=== PATIENT | male | born 1995 | race Hispanic/Latino ===

== ENCOUNTER 2016-09-23 10:15 | Emergency (ER) | payer OTHER ==
[~2016-09-23] VITALS: Ht 190.5 cm; Wt 83.9 kg
[2016-09-23] MEDS ORDERED: METHOCARBAMOL 500 MG TAB PO ONE (11:00)
[2016-09-23] MEDS ORDERED: IBUPROFEN 800 MG TAB PO ONE (11:00)
--- NOTE | 2016-09-23 11:54 | REP ---
LUMBOSACRAL SPINE: Five views of the lumbosacral spine performed. There is no fracture or dislocation. Vertebral bodies are normal in height and are well aligned with normal lumbar lordosis. There is no spondylolysis or spondylolisthesis. Disc spaces are well preserved. Posterior elements are intact. IMPRESSION: No fracture or dislocation. Signed by Sumeet Bonilla MD 09/24/2016 04:02 P
[2016-09-23] MEDS ORDERED: IBUP80TA PO (12:08)
[2016-09-23] MEDS ORDERED: ROBA500T PO (12:08)
[2016-09-23] MEDS ORDERED: NORCOTAB PO (12:08)
[2016-09-23 12:10] VITALS: BP 147/82
== END 2016-09-23 12:14 | disposition home or self-care (01) ==
LOC: M ED 10:15
DX: S39.012A Strain of muscle, fascia and tendon of lower back, initial encounter (principal); V49.50XA Passenger injured in collision with unspecified motor vehicles in traffic accident, initial encounter; Y92.410 Unspecified street and highway as the place of occurrence of the external cause; Y93.89 Activity, other specified; Y99.9 Unspecified external cause status